=== PATIENT | female | born 1930 | race Caucasian/White ===

== ENCOUNTER 2017-06-20 11:26 | Emergency (ER) | payer MEDICARE, OTHER ==
--- NOTE | 2017-06-20 12:33 | RADIOLOGY REPORT (SQ) ---
EXAM DESCRIPTION: SHOULDER RIGHT 2 OR MORE VIEWS COMPLETED DATE/TIME: 06/20/2017 11:43 am REASON FOR STUDY: bed 3 right shoulder deformity COMPARISON: None. NUMBER OF VIEWS: Three views. TECHNIQUE: Internal rotation, external rotation, and Y view images acquired of the right shoulder. LIMITATIONS: None. FINDINGS: MINERALIZATION: Bony structures appear demineralized. BONES: Anterior dislocation of the humeral head, with avulsion fracture noted below the glenoid. JOINTS: Anterior dislocation with avulsion fracture. VISUALIZED LUNGS AND RIBS: Prominent right hilum of the heart. May reflect film technique. Consider followup chest. SOFT TISSUES: Nothing acute OTHER: No other significant finding. IMPRESSION: Anterior dislocation humeral head with avulsion fracture TECHNICAL DOCUMENTATION: JOB ID: [id number] [employer]- All Rights Reserved Reading location - IP/workstation name: [email or web address]
[2017-06-20] MEDS ORDERED: KETAMINE HCL INJ 500 MG/10 ML VIAL IM ONE (13:15)
[2017-06-20] MEDS ORDERED: KETAMINE HCL INJ 500 MG/10 ML VIAL ONE (13:15)
--- NOTE | 2017-06-20 13:42 | ER Document Report ---
ED General - General Chief Complaint: Arm Pain Stated Complaint: SHOULDER PAIN Time Seen by Provider: 06/20/17 11:58 Information source: Transfer Record, Emergency Med Personnel, Outside Facility Records TRAVEL OUTSIDE OF THE [place] IN LAST 30 DAYS: No - HPI Patient complains to provider of: right shoulder abnormality Onset: Just prior to arrival Onset/Duration: Sudden Similar symptoms previously: No Recently seen / treated by doctor: No - Related Data Allergies/Adverse Reactions: No Known Allergies Allergy (Unverified 06/20/17 11:52) Past Medical History - General Information source: Transfer Record - Social History Smoking Status: Unknown if Ever Smoked Chew tobacco use (# tins/day): No Frequency of alcohol use: None Drug Abuse: None Lives with: Longterm Family History: Reviewed & Not Pertinent Patient has suicidal ideation: No Patient has homicidal ideation: No Renal/ Medical History: Reports: Other - UTI. Denies: Hx Peritoneal Dialysis Psychiatric Medical History: Reports: Hx Dementia, Hx Depression - Immunizations Hx Diphtheria, Pertussis, Tetanus Vaccination: - unknown Review of Systems - Review of Systems -: Yes ROS unobtainable due to patient's medical condition Physical Exam - Vital signs Vitals: Temp Pulse Resp BP Pulse Ox 97.4 F 60 16 135/69 H 100 06/20/17 11:55 06/20/17 11:55 06/20/17 11:55 06/20/17 11:55 06/20/17 11:55 - Notes Notes: PHYSICAL EXAMINATION: GENERAL: Well-appearing, well-nourished and in no acute distress. HEAD: Atraumatic, normocephalic. EYES: Pupils equal round and reactive to light, extraocular movements intact, conjunctiva are normal. ENT: Nares patent, oropharynx clear without exudates. Moist mucous membranes. NECK: Normal range of motion, supple without lymphadenopathy LUNGS: Breath sounds clear to auscultation bilaterally and equal. No wheezes rales or rhonchi. HEART: Regular rate and rhythm without murmurs ABDOMEN: Soft, nontender, nondistended abdomen. No guarding, no rebound. No masses appreciated. Female : deferred Musculoskeletal: Right shoulder deformity with obvious dislocation. NEUROLOGICAL: Cranial nerves grossly intact. Movesall extremities-RUE limited to forearm movement. PSYCH: Nonverbal. Agitated. Combative. SKIN: Warm, Dry, normal turgor, no rashes or lesions noted. Course - Re-evaluation Re-evalutation: 06/20/17 15:21 Walter the porter sample case in the emergency department did call the [facility] and spoke with the nurses who take care of the patient. The patient has been combative lately and is very difficult to manage. He stated they did have issues with her not wanting to take a shower which is not unusual for the patient. The states she was left alone in her room for some time as his normal routine. They stated when they went to put a sweater on her they noted that her right shoulder was abnormal in center here. They have called the daughter to notify her of the trans-poor rotation to the emergency department and she has not called them back yet. 06/20/17 15:22 Shoulder X-Ray 06/20/17 13:44 IMPRESSION: Status post reduction of anterior dislocation right shoulder. Associated avulsion fractures right humeral head noted. - Vital Signs Vital signs: Temp Pulse Resp BP Pulse Ox 97.4 F 60 22 H 130/72 H 99 06/20/17 11:55 06/20/17 11:55 06/20/17 14:03 06/20/17 14:03 06/20/17 14:03 - Laboratory Laboratory results interpreted by me: 06/20/17 14:05 Urine Ascorbic Acid 40 H - Diagnostic Test Radiology reviewed: Image reviewed, Reports reviewed Procedures - Conscious Sedation Conscious sedation Time started: 13:35 Time completed: 13:55 Consent obtained: No - Pt. with dementia and unable to consent.Pt.'s daughter couldn't be reached. Prior complications: Procedural sedation Pt with a mild systemic disease.: P2. - ASA Classification. Airway Evaluation: No: Copious secretions, Large tongue, Loose teeth, Neck immobility, Obese, Poss. upper airway obst. Used during procedure: Pulse ox on pt. Medications administered: Ketamine Reversal agents: None I personally performed/intraservice time: Sedation, Procedure, 30 min or less Complications: No - Joint Reduction/Fracture Care Right Anterior Shoulder Time completed: 13:35 Consent obtained: No - pt demented, unable to consent Conscious sedation: Yes Fracture: Closed - fracture present on initial xray prior to reduction Manipulation comment: traction/counter traction with external rotation and abduction used to redu Post-reduction x-ray: Joint reduced Reduction attempts: 2 Complications: No Discharge - Discharge Clinical Impression: Anterior dislocation of right shoulder, Closed right humeral fracture Fall Qualifiers: Encounter type: initial encounter Qualified Code(s): W19.XXXA - Unspecified fall, initial encounter Condition: Stable Disposition: HOME-SNF (ED ONLY) Instructions: Shoulder Dislocation ([facility]), Sling as Treatment ([facility]) Additional Instructions: Follow up with your physician tomorrow for further care or return to the ED IMMEDIATELY if symptoms worsen or new concerns occur. If you cannot afford to follow up with your primary care physician a list of low cost clinics have been provided at the end of your discharge papers as well. Referrals: JN SMITH MD [Primary Care Provider] - Follow up as needed CAPRI CUEVAS MD [ACTIVE STAFF] - Follow up in 1 week
--- NOTE | 2017-06-20 14:12 | RADIOLOGY REPORT (SQ) ---
EXAM DESCRIPTION: SHOULDER RIGHT 1 VIEW COMPLETED DATE/TIME: 06/20/2017 1:56 pm REASON FOR STUDY: reduction COMPARISON: None. NUMBER OF VIEWS: Three views. TECHNIQUE: Internal rotation, external rotation, and Y view images acquired of the right shoulder. LIMITATIONS: None. FINDINGS: Postreduction portable AP view demonstrates interval reduction of anterior dislocation rig ht shoulder with previously noted avulsion fractures from right humeral head again noted. IMPRESSION: Status post reduction of anterior dislocation right shoulder. Associated avulsion fract ures right humeral head noted. TECHNICAL DOCUMENTATION: JOB ID: [id number] [employer]- All Rights Reserved Reading location - IP/workstation name: [email or web address]
[2017-06-20 14:29] LABS: APPEARANCE,URINE CLEAR; BILIRUBIN,URINE NEGATIVE (NEGATIVE); COLOR,URINE YELLOW; GLUCOSE, URINE NEGATIVE (NEGATIVE); KETONES,URINE NEGATIVE (NEGATIVE); LEUKOCYTE ESTERASE,URINE NEGATIVE (NEGATIVE); NITRITE,URINE NEGATIVE (NEGATIVE); PROTEIN,URINE NEGATIVE (NEGATIVE); URINE SPECIFIC GRAVITY 1.019; UROBILINOGEN,URINE NEGATIVE mg/dL (<2.0)
[2017-06-20 19:47] VITALS: BP 138/72
== END 2017-06-20 19:48 ==
LOC: ER 11:26
PROC: 0RSJXZZ Reposition Right Shoulder Joint, External Approach (ICD-10-PCS; principal; 2017-06-20)
DX: S43.004A Unspecified dislocation of right shoulder joint, initial encounter (principal); S42.291A Other displaced fracture of upper end of right humerus, initial encounter for closed fracture; F03.90 Unspecified dementia, unspecified severity, without behavioral disturbance, psychotic disturbance, mood disturbance, and anxiety; X58.XXXA Exposure to other specified factors, initial encounter; Y92.129 Unspecified place in nursing home as the place of occurrence of the external cause
CPT/HCPCS: 99284; 96372; 99153; 99152; 81001; 73020; 73030; 23650; J3490

== ENCOUNTER 2017-06-26 03:10 | Emergency (ER) | payer MEDICARE, OTHER ==
--- NOTE | 2017-06-26 03:28 | ER Document Report ---
ED Fall - General Chief Complaint: Fall Stated Complaint: RIGHT KNEE PAIN Time Seen by Provider: 06/26/17 03:15 Mode of Arrival: Medic Information source: Emergency Med Personnel, [facility] Records Cannot obtain history due to: Dementia TRAVEL OUTSIDE OF THE [place] IN LAST 30 DAYS: No - HPI Patient complains to provider of: FALL Occurred: Just prior to arrival Notes: Patient is here with EMS after a fall at a detention facility. Apparently the patient tripped and fell onto her buttocks and injured her right knee. Patient has dementia and does not communicate, I am unable to obtain any further information from the patient. Apparently the believe that she has some pain in her right knee. She was seen here approximately 6 days ago after a fall and a right shoulder dislocation with a avulsion fracture of her humeral head. No further information obtained due to patient's mental status. - Related data Allergies/Adverse Reactions: No Known Allergies Allergy (Unverified 06/20/17 11:52) Past Medical History - Social History Smoking Status: Unknown if Ever Smoked Family History: Reviewed & Not Pertinent Renal/ Medical History: Denies: Hx Peritoneal Dialysis Psychiatric Medical History: Reports: Hx Dementia, Hx Depression - Immunizations Hx Diphtheria, Pertussis, Tetanus Vaccination: - unknown Review of Systems - Review of Systems -: Yes ROS unobtainable due to patient's medical condition Physical Exam - Vital signs Vitals: Pulse Resp BP Pulse Ox 98 20 123/63 98 06/26/17 03:21 06/26/17 03:21 06/26/17 03:21 06/26/17 03:21 - Notes Notes: GENERAL: Awake. Somewhat uncooperative due to her dementia. Nontoxic appearing. HEAD: normocephalic, atraumatic EYES: conjunctiva pink without discharge, no external redness or swelling. PERRL EARS: no external swelling, no external redness. No hemotympanum EM NOSE: atraumatic, no external swelling. No bleeding MOUTH/THROAT: mucous membranes moist and pink, posterior pharynx without erythema, swelling, exudate. No trismus or drooling. NECK: soft, supple, full range of motion, no meningismus. No midline tenderness step-offs or crepitus to palpation of the cervical spine. CHEST: no distress, lungs clear and equal throughout. No wheezing, rales, rhonchi. CARDIAC: regular rate and rhythm, no murmur, normal capillary refill, normal pulses. No peripheral edema noted. ABDOMEN: Soft, nontender. No ecchymosis. BACK: full range of motion, no CVA tenderness. No midline tenderness step-offs or crepitus to palpation of the thoracic or lumbar spine. EXTREMITIES: Right leg is in a semi-flex position. The patient appears to have tenderness with palpation of the right knee. Normal pulse and sensation distally. NEURO: Patient is awake. She has baseline dementia. She is no obvious focal deficits. She is moving all extremities. PYSCH: appropriate mood, affect. SKIN: pink, warm, dry, no rash. Course - Re-evaluation Re-evalutation: 06/26/17 04:21 Patient is nontoxic appearing with stable vitals. Patient has dementia and is not communicative. Is difficult to get an significantly accurate history. According to the detention staff, the patient fell from standing landing on her butt and injuring her right knee. She is no obvious signs of significant trauma. There is no signs of head trauma. She is at her baseline according to the detention staff. She is neurovascularly intact. There is no signs of infection. X-rays of the lumbar spine, right hip/pelvis, right hip show no acute abnormality per the radiologist. This point the patient can be discharged back to the detention. She should follow-up if she continues to have pain, high fever, or has any further concerns. The patient is noted to have elevated blood pressure during today's emergency department visit. The patient was informed of this finding. The patient was instructed that this may be related to pre-hypertension and requires further evaluation with a primary care provider. The patient has no hypertensive symptoms at this time. The patient's emergency department workup and current diagnosis were explained to the patient and or family. Follow-up instructions were provided. Medications if prescribed were discussed. Instructions for when to return to the emergency department including specific worrisome symptoms were discussed with the patient and/or family. - Vital Signs Vital signs: Temp Pulse Resp BP Pulse Ox 98 20 123/63 98 06/26/17 03:21 18 03:21 06/26/17 03:21 06/26/17 03:21 - Diagnostic Test Radiology reviewed: Image reviewed, Reports reviewed - X-rays of the lumbar spine, right hip pelvis, right knee, show no acute abnormality per the radiologist. Discharge - Discharge Clinical Impression: Fall Qualifiers: Encounter type: initial encounter Qualified Code(s): W19.XXXA - Unspecified fall, initial encounter Knee pain, acute Qualifiers: Laterality: right Qualified Code(s): M25.561 - Pain in right knee Condition: Stable Disposition: HOME-SNF (ED ONLY) Instructions: Sprained Knee ([facility]) Additional Instructions: Follow-up if you continue to have pain in 1 week, sooner for worsening pain, high fever, redness, any further concerns. Your blood pressure was elevated during today's visit. Have this rechecked with your doctor. Forms: Elevated Blood Pressure
--- NOTE | 2017-06-26 04:04 | RADIOLOGY REPORT (SQ) ---
EXAM DESCRIPTION: HIP RIGHT AP/LATERAL CLINICAL HISTORY: fall, pain COMPARISON: None. FINDINGS: 2 views of the right hip. No acute fracture or dislocation. Osteopenia. Pelvic soft tissues are unremarkable. IMPRESSION: 1. No right hip fracture identified. Given degree of osteopenia to the patient continues to have pain follow-up radiographs or MRI may be helpful.
--- NOTE | 2017-06-26 04:05 | RADIOLOGY REPORT (SQ) ---
EXAM DESCRIPTION: KNEE RIGHT 2 VIEWS CLINICAL HISTORY: fall, pain COMPARISON: None. FINDINGS: Single view of the right knee. No acute fracture identified on this single view. Osteopenia. 2 compartment joint space narrowing. IMPRESSION: 1. No acute fracture noted on this single frontal view.
--- NOTE | 2017-06-26 04:06 | RADIOLOGY REPORT (SQ) ---
EXAM DESCRIPTION: L SPINE WHOLE CLINICAL HISTORY: fall, pain COMPARISON: None. FINDINGS: 5 views of the lumbar spine. 5 nonrib-bearing lumbar vertebrae. Lumbar vertebral body height preserved. No cortical step-offs or subluxation identified. Mild to moderate loss of intervertebral disc height throughout the lumbar spine with endplate spondylosis and facet arthropathy. No abnormalities of the visualized sacrum. Pedicles identified throughout. Abdominal soft tissues and straight no definite abnormalities. IMPRESSION: No acute abnormality of the lumbar spine by plain film criteria.
[2017-06-26 05:38] VITALS: BP 123/54
== END 2017-06-26 05:05 ==
LOC: ER 03:10
DX: M25.561 Pain in right knee (principal); W01.0XXA Fall on same level from slipping, tripping and stumbling without subsequent striking against object, initial encounter; Y92.129 Unspecified place in nursing home as the place of occurrence of the external cause; R03.0 Elevated blood-pressure reading, without diagnosis of hypertension
CPT/HCPCS: 72110; 99284

== ENCOUNTER 2017-08-07 20:32 | Emergency (ER) | payer MEDICARE, OTHER ==
--- NOTE | 2017-08-07 21:04 | ER Document Report ---
ED Extremity Problem, Lower - General Stated Complaint: REDNESS AND SWELLING TO FEET Time Seen by Provider: 08/07/17 20:49 Notes: Patient is an 86-year-old female with a past medical history significant for dementia who presents emergency department with a chief complaint of feet redness. Patient is in a facility and history is per EMS documentation. Unknown onset. Patient wincing to palpation her feet and calves. Patient is only on Seroquel and melatonin. Follows with Dr. Smith. No history of DVTs, PE. TRAVEL OUTSIDE OF THE [place] IN LAST 30 DAYS: No - Related Data Allergies/Adverse Reactions: No Known Allergies Allergy (Unverified 06/20/17 11:52) Past Medical History - Social History Smoking Status: Smoker,Current Status Unk Family History: Reviewed & Not Pertinent Renal/ Medical History: Denies: Hx Peritoneal Dialysis Psychiatric Medical History: Reports: Hx Dementia, Hx Depression - Immunizations Hx Diphtheria, Pertussis, Tetanus Vaccination: - unknown Review of Systems - Review of Systems -: Yes ROS unobtainable due to patient's medical condition Physical Exam - Vital signs Vitals: Temp 97.4 F 08/07/17 20:45 - Notes Notes: PHYSICAL EXAM GENERAL: Alert, interacts well. HEAD: Normocephalic, atraumatic. EYES: Pupils equal, round, and reactive to light. Extraocular movements intact. ENT: Oral mucosa moist, tongue midline. NECK: Full range of motion. Supple. Trachea midline. LUNGS: Clear to auscultation bilaterally, no wheezes, rales, or rhonchi. No respiratory distress. HEART: Regular rate and rhythm. No murmurs, gallops, or rubs. ABDOMEN: Soft, nondistended, nontender. No guarding, rebound, or rigidity.. Bowel sounds present in all 4 quadrants. EXTREMITIES: Moves all 4 extremities spontaneously. 1+ pitting edema, radial and dorsalis pedis pulses 2/4 bilaterally. No cyanosis. NEUROLOGICAL: Alert and oriented x4. Normal speech. PSYCH: Normal affect, normal mood. SKIN: Warm, dry, normal turgor. Feet bilaterally with blanching erythema wihtout dialted vessels. Course - Re-evaluation Re-evalutation: 08/07/17 22:41 patient is a 86 year old female with edema and redness to her legs with unknown onset but facility states that it started today and was note [employer] shift [employer]. Unaware of any allergies or new skin care products. Patient is not ambulatory and had been in a chair all day without much activity. Bilateral Dopplers negative. Will discharge patient home with compression stockings and antibiotics with instruction to follow-up with primary care. - Vital Signs Vital signs: Temp Pulse Resp BP Pulse Ox 97.4 F 66 20 134/74 H 97 08/07/17 20:45 08/08/17 01:53 08/08/17 01:53 08/08/17 01:53 08/08/17 01:53 Discharge - Discharge Clinical Impression: Edema Qualifiers: Edema type: unspecified Qualified Code(s): R60.9 - Edema, unspecified Condition: Good Disposition: HOME, SELF-CARE Instructions: Dependent Edema ([facility]) Additional Instructions: There is no evidence of blood clot on your exam today. Please utilize compression stocking and elevation. Please take the antibiotic as directed. Prescriptions: Cephalexin Monohydrate [Keflex 500 mg Capsule] 500 mg PO Q6H 5 Days capsule Compression Socks, Medium [Futuro Restoring] 1 each MC ASDIR PRN 1 Days each PRN Reason: Referrals: JN SMITH MD [ACTIVE STAFF] - 08/09/17
[2017-08-08 01:58] VITALS: BP 134/74
--- NOTE | 2017-08-08 07:40 | XCELERA REPORT ---
[address] [address] Lower Extremity Venous Evaluation Name: PAOLO RIVERO Age: 86 yrs Gender: Female : 1930 Patient Status: Emergency Patient Location: ER Study Date: 08/07/2017 09:38 PM Procedure: Color flow and duplex imaging bilaterally of the veins of the lower extremities as well as the Common Femoral veins. Reason For Study: b/l calf tendnerness, swelling and erythema Ordering Physician: HI GALVEZ PA-C Performed By: Ness Murdock Right Sided Venous Evaluation Normal vessel filling wall to wall, compression and augmentation as well as Colour flow down to the infrageniculate veins. Left Sided Venous Evaluation Normal vessel filling wall to wall, compression and augmentation as well as Colour flow down to the infrageniculate veins. Interpretation Summary No duplex evidence of DVT or obstruction in the bilateral lower extremities. : HI GALVEZ PA-C > Leif Flowers
== END 2017-08-08 01:53 | disposition home or self-care (01) ==
LOC: ER 20:32
DX: R60.9 Edema, unspecified (principal); F17.200 Nicotine dependence, unspecified, uncomplicated; Z79.899 Other long term (current) drug therapy
CPT/HCPCS: 93970; 99284

== ENCOUNTER 2019-01-17 11:29 | Emergency (ER) | payer MEDICARE, OTHER ==
[2019-01-17 11:46] VITALS: BP 139/72
[2019-01-17] MEDS ORDERED: DIPH/PERTUSS(ACELL)/TETANUS VAC/PF 0.5 ML SYR (>=10YO) IM ONE ×2 (12:10→14:45)
--- NOTE | 2019-01-17 12:13 | ER Document Report ---
ED Medical Screen (RME) - General Chief Complaint: Fall Injury Stated Complaint: FALL/NECK PAIN Time Seen by Provider: 01/17/19 11:52 Information source: Transfer Record Notes: Patient is from [facility] and fell from a wheelchair today injuring her left arm and hitting her head. There was no reported loss of consciousness. Patient with bruising to the left temporal area. Patient with skin tear to left arm. Patient incidentally with redness and swelling and delayed capillary refill to bilateral lower extremities I have greeted and performed a rapid initial assessment of this patient. A co mprehensive ED assessment and evaluation of the patient, analysis of test results and completion of the medical decision making process will be conducted by additional ED providers. TRAVEL OUTSIDE OF THE [place] IN LAST 30 DAYS: No - Related Data Allergies/Adverse Reactions: No Known Allergies Allergy (Unverified 06/20/17 11:52) Past Medical History - Past Medical History Cardiac Medical History: Denies: Hx Atrial Fibrillation Pulmonary Medical History: Denies: Hx Asthma Renal/ Medical History: Denies: Hx Peritoneal Dialysis Musculoskeltal Medical History: Denies Hx Arthritis Psychiatric Medical History: Reports: Hx Dementia, Hx Depression - Immunizations Hx Diphtheria, Pertussis, Tetanus Vaccination: - unknown Physical Exam - Vital signs Vitals: Temp Pulse Resp BP Pulse Ox 97.5 F 60 20 139/72 H 100 01/17/19 11:41 01/17/19 11:41 01/17/19 11:41 01/17/19 11:41 01/17/19 11:41 - General General appearance: Alert Notes: Ecchymosis to left temporal area, skin tear to left forearm, erythema and swelling to bilateral lower extremities with delayed cap refill Course - Vital Signs Vital signs: Temp Pulse Resp BP Pulse Ox 97.5 F 60 20 139/72 H 100 01/17/19 11:41 01/17/19 11:41 01/17/19 11:41 01/17/19 11:41 01/17/19 11:41
--- NOTE | 2019-01-17 12:56 | RADIOLOGY REPORT (SQ) ---
EXAM DESCRIPTION: CT HEAD WITHOUT COMPLETED DATE/TIME: 01/17/2019 12:40 pm REASON FOR STUDY: fall, head injury COMPARISON: 01/07/2015 TECHNIQUE: Axial images acquired through the brain without intravenous contrast. Images reviewed wi th bone, brain and subdural windows. Additional sagittal and coronal reconstructions were generated. Images stored on PACS. All CT scanners at this facility use dose modulation, iterative reconstruction, and/or weight based d osing when appropriate to reduce radiation dose to as low as reasonably achievable (ALARA). [facility]: Dose Right [facility]: CareDose [facility]: Dose Right [facility]: Teradose 4D [facility]: Smart [employer] RADIATION DOSE: CT Rad equipment meets quality standard of care and radiation dose reduction techniq ues were employed. CTDIvol: 53.2 mGy. DLP: 964 mGy-cm.mGy. LIMITATIONS: None. FINDINGS: VENTRICLES: Prominent. CEREBRUM: No masses. No hemorrhage. No midline shift. Areas of low density in the white matter mos t likely due to chronic micro-vascular ischemic change. No evidence for acute infarction. CEREBELLUM: No masses. No hemorrhage. No alteration of density. No evidence for acute infarction. EXTRAAXIAL SPACES: Age-related involutional change. No fluid collections. No masses. ORBITS AND GLOBE: No intra- or extraconal masses. Normal contour of globe without masses. CALVARIUM: No fracture. PARANASAL SINUSES: No fluid or mucosal thickening. SOFT TISSUES: No mass or hematoma. OTHER: No other significant finding. IMPRESSION: CHRONIC CHANGES OF ATROPHY AND MICROVASCULAR ISCHEMIA. NO ACUTE PROCESS. EVIDENCE OF ACUTE STROKE: NO. TECHNICAL DOCUMENTATION: JOB ID: [id number] Quality ID # [id number]: Final reports with documentation of one or more dose reduction techniques (e.g., Au tomated exposure control, adjustment of the mA and/or kV according to patient size, use of iterative reconstruction technique) 2010 [employer]- All Rights Reserved Reading location - IP/workstation name: [email or web address]
--- NOTE | 2019-01-17 13:06 | RADIOLOGY REPORT (SQ) ---
EXAM DESCRIPTION: CT CERVICAL SPINE WITHOUT COMPLETED DATE/TIME: 01/17/2019 12:40 pm REASON FOR STUDY: fall, head injury COMPARISON: None. TECHNIQUE: Axial images acquired through the cervical spine without intravenous contrast. Images re viewed with lung, soft tissue and bone windows. Reconstructed coronal and sagittal MPR images review ed. Images stored on PACS. All CT scanners at this facility use dose modulation, iterative reconstruction, and/or weight based d osing when appropriate to reduce radiation dose to as low as reasonably achievable (ALARA). [facility]: Dose Right [facility]: CareDose [facility]: Dose Right [facility]: Teradose 4D [facility]: Smart [employer] RADIATION DOSE: CT Rad equipment meets quality standard of care and radiation dose reduction techniq ues were employed. CTDIvol: 10.4 mGy. DLP: 216 mGy-cm. mGy. LIMITATIONS: None. FINDINGS: ALIGNMENT: Anatomic. MINERALIZATION: Normal. VERTEBRAL BODIES: No fractures or dislocation. DISCS: Multilevel disc space narrowing with osteophytes. FACETS, LATERAL MASSES, POSTERIOR ELEMENTS: Facet arthropathy. No fractures. No dislocation. No ac [place] findings. HARDWARE: None in the spine. VISUALIZED RIBS: No fractures. LUNG APICES AND SOFT TISSUES: No significant or acute findings. OTHER: No other significant finding. IMPRESSION: CHRONIC DEGENERATIVE CHANGES. NO ACUTE FINDINGS. TECHNICAL DOCUMENTATION: JOB ID: [id number] Quality ID # [id number]: Final reports with documentation of one or more dose reduction techniques (e.g., Au tomated exposure control, adjustment of the mA and/or kV according to patient size, use of iterative reconstruction technique) 2010 [employer]- All Rights Reserved Reading location - IP/workstation name: [email or web address]
--- NOTE | 2019-01-17 13:06 | RADIOLOGY REPORT (SQ) ---
EXAM DESCRIPTION: FOREARM LEFT COMPLETED DATE/TIME: 01/17/2019 12:53 pm REASON FOR STUDY: fall COMPARISON: None. NUMBER OF VIEWS: Two views. TECHNIQUE: Two radiographic images acquired of the left forearm, including elbow and wrist in at [address] one projection. LIMITATIONS: None. FINDINGS: MINERALIZATION: Osteopenia BONES: No acute fracture. No worrisome bone lesions. SOFT TISSUES: No obvious swelling or foreign body. OTHER: No other significant finding. IMPRESSION: NEGATIVE STUDY OF THE LEFT FOREARM. NO RADIOGRAPHIC EVIDENCE OF ACUTE INJURY. TECHNICAL DOCUMENTATION: JOB ID: [id number] [employer] All Rights Reserved Reading location - IP/workstation name: [email or web address]
--- NOTE | 2019-01-17 13:46 | ER Document Report ---
ED Fall - General Chief Complaint: Fall Injury Stated Complaint: FALL/NECK PAIN Time Seen by Provider: 01/17/19 11:52 Information source: Transfer Record Notes: Patient is a 88-year-old female with a history of dementia and Alzheimer's who presents to the emergency department after a fall. Patient is a resident of [facility]. It was reported that the patient was sitting in her wheelchair when she slid out of it and hit the left side of her head. There was no reported loss of consciousness. Son is at the bedside who states that she is currently acting her normal and that her baseline is nonverbal. The staff reports that she does have a skin tear to her left arm, left lateral hand, hematoma to the left side of the head and a skin tear of the right forearm. Patient is not on any current blood thinners. Patient was placed in a hard c- collar prior to arrival by transport staff. TRAVEL OUTSIDE OF THE [place] IN LAST 30 DAYS: No - Related data Allergies/Adverse Reactions: No Known Allergies Allergy (Unverified 06/20/17 11:52) Past Medical History - General Information source: Relative, Transfer Record - Social History Smoking Status: Unknown if Ever Smoked Frequency of alcohol use: None Drug Abuse: None Lives with: Detention Family History: Reviewed & Not Pertinent Patient has suicidal ideation: No Patient has homicidal ideation: No - Past Medical History Cardiac Medical History: Reports: None Denies: Hx Atrial Fibrillation Pulmonary Medical History: Reports: None Denies: Hx Asthma EENT Medical History: Reports: None Neurological Medical History: Reports: None Endocrine Medical History: Reports: None Renal/ Medical History: Reports: None. Denies: Hx Peritoneal Dialysis Malignancy Medical History: Reports: None GI Medical History: Reports: None Musculoskeletal Medical History: Reports None, Denies Hx Arthritis Skin Medical History: Reports None Psychiatric Medical History: Reports: Hx Dementia, Hx Depression Traumatic Medical History: Reports: None Infectious Medical History: Reports: None Surgical Hx: Negative - Immunizations Hx Diphtheria, Pertussis, Tetanus Vaccination: - unknown Review of Systems - Review of Systems Constitutional: No symptoms reported EENT: See HPI Cardiovascular: No symptoms reported Respiratory: No symptoms reported Gastrointestinal: No symptoms reported Genitourinary: No symptoms reported Female Genitourinary: No symptoms reported Musculoskeletal: See HPI Skin: See HPI Hematologic/Lymphatic: No symptoms reported Neurological/Psychological: No symptoms reported Physical Exam - Vital signs Vitals: Temp Pulse Resp BP Pulse Ox 97.5 F 60 20 139/72 H 100 01/17/19 11:41 01/17/19 11:41 01/17/19 11:41 01/17/19 11:41 01/17/19 11:41 Interpretation: Normal - Notes Notes: GENERAL: No acute distress, pleasantly confused, non verbal and at baseline per son at the bedside. HEAD: Hematoma noted to the left temporal area, no laceration or active bleeding, normocephalic. Negative kaplan's sign. EYES: Pupils equal round and reactive to light, extraocular movements intact, sclera anicteric, conjunctiva are normal. ENT: TMs normal, nares patent, oropharynx clear without exudates. No blood or liquid noted in the ear canal. Moist mucous membranes. NECK: Normal range of motion, supple without lymphadenopathy or JVD. LUNGS: Breath sounds clear to auscultation bilaterally and equal. No wheezes rales or rhonchi. HEART: Regular rate and rhythm without murmurs, rubs or gallops. ABDOMEN: Soft, nontender, normoactive bowel sounds. No guarding, no rebound. No masses appreciated. BACK: No cervical, thoracic, lumbar midline tenderness. No saddle anesthesia, normal distal neurovascular exam. GENITOURINARY: Deferred. EXTREMITIES: Normal range of motion, + erythema and swelling to bilaterally lower extremities with decreased cap refill, on call pharmacy technician was able to doppler pedal pulses. Son at the bedside states that the patient's legs have been this way for years and do not appear to be any more swollen or more red than normal. Patient has a small skin tear noted to the left lateral forearm, left lateral hand and right forearm. There is no active bleeding. NEUROLOGICAL: Non verbal, confused, at baseline per family member at the bedside. PSYCH: Pleasantly confused. SKIN: Warm, Dry, normal turgor, no rashes or lesions noted. Course - Re-evaluation Re-evalutation: 01/17/19 13:53 Upon initial evaluation patient has a negative head CT, negative cervical Scan and a negative x-ray of the left forearm. Patient does have a skin tears that do not require suture repair but will be cleaned and wrapped with a nonstick dressing and Kerlix. I did speak with the son who was at the bedside who reports that the redness and swelling to her bilateral lower extremities is not new and has been present for years. He states that there is no worsening swelling or redness to the leg. He reports that the patient is mostly wheelchair bound and does not ambulate much anymore. I did inform him of the results of the cat scan. - Vital Signs Vital signs: Temp Pulse Resp BP Pulse Ox 97.5 F 60 20 139/72 H 100 01/17/19 11:41 01/17/19 11:41 01/17/19 11:41 01/17/19 11:41 01/17/19 11:41 - Diagnostic Test Radiology reviewed: Reports reviewed Radiology results interpreted by me: 01/17/19 13:[address] 01/17/19 12:10 IMPRESSION: CHRONIC DEGENERATIVE CHANGES. NO ACUTE FINDINGS. Head CT 01/17/19 12:10 IMPRESSION: CHRONIC CHANGES OF ATROPHY AND MICROVASCULAR ISCHEMIA. NO ACUTE PROCESS. EVIDENCE OF ACUTE STROKE: NO. Forearm X-Ray 01/17/19 12:12 IMPRESSION: NEGATIVE STUDY OF THE LEFT FOREARM. NO RADIOGRAPHIC EVIDENCE OF ACUTE INJURY. Discharge - Discharge Clinical Impression: Skin tear, Edema of lower extremity Fall Qualifiers: Encounter type: initial encounter Qualified Code(s): W19.XXXA - Unspecified fall, initial encounter Head injury due to trauma Qualifiers: Encounter type: initial encounter Qualified Code(s): S09.90XA - Unspecified injury of head, initial encounter Condition: Stable Disposition: HOME-ASSISTED LIVING Additional Instructions: Today you are seen in the emergency department after a fall out of your wheelchair. You do have a hematoma and multiple skin tears to your the arms. We did obtain an x-ray of the left forearm, and a CAT scan of the head and neck which did not show any acute bleed, deformity, dislocation, skull fracture or any concerning symptoms at this time. It will take weeks for the hematoma to heal. Please keep the skin tear areas clean and dry. You may cover these with a nonstick dressing over the next few weeks. Please return to the emergency department if the patient develops persistent vomiting, difficulty arousing, worsening your change in mental status that is different from her normal or any other concerning signs or symptoms. Head Injury Precautions At this point, there is no evidence that your head injury is serious. Observation is necessary, however. Take only clear liquids for the first few hours, unless told otherwise by the doctor. If no pain medication was prescribed, you may take acetaminophen according to the directions on the bottle. Do not take any medication that may alter your level of alertness (unless you've discussed it with the doctor first). Limit activity for the first 24 hours. Bed rest is best. During the first 24 hours, check to see approximately every two to three hours that the patient is easily arousable, responds normally, and can perform common tasks such as walking without difficulty. Contact your doctor or go to the hospital if any of the following things occur: Persistent vomiting, difficulty in arousing the patient, worsening or continued headache, or failure to improve as expected. Head injuries can cause symptoms that persist for a few days or even a few weeks.
== END 2019-01-17 14:51 | disposition home health service (06) ==
LOC: ER 11:29
DX: S51.812A Laceration without foreign body of left forearm, initial encounter (principal); S51.811A Laceration without foreign body of right forearm, initial encounter; S61.412A Laceration without foreign body of left hand, initial encounter; S00.83XA Contusion of other part of head, initial encounter; W05.0XXA Fall from non-moving wheelchair, initial encounter; Y93.89 Activity, other specified; Y92.129 Unspecified place in nursing home as the place of occurrence of the external cause; M47.9 Spondylosis, unspecified; G30.9 Alzheimer's disease, unspecified; F02.80 Dementia in other diseases classified elsewhere, unspecified severity, without behavioral disturbance, psychotic disturbance, mood disturbance, and anxiety; L53.9 Erythematous condition, unspecified; M79.89 Other specified soft tissue disorders; R60.0 Localized edema; Z99.3 Dependence on wheelchair
CPT/HCPCS: 70450; 72125; 90471; 90715; 99285